=== PATIENT | female | born 1990 | race Caucasian/White ===

== ENCOUNTER 2023-08-24 21:53 | Emergency (ER) | payer OTHER, SELFPAY ==
[2023-08-24 21:56] VITALS: BP 200/124
[2023-08-24] MEDS: NSS 1000 IV (23:51)
[2023-08-24] MEDS: ATIVAN 0.5 MG IV (23:52)
[2023-08-24 23:56] VITALS: BMI 40.5
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
[2023-08-25 00:22] LABS: ALT (SGPT) 42 U/L (0-35); AST (SGOT) 43 U/L (14-36); Acetaminophen < 10 ug/ml (10-30); Albumin 4.6 g/dl (3.5-5.0); Alkaline Phosphatase 68 U/L (38-126); Blood Urea Nitrogen 10 mg/dl (7-17); Calcium 9.3 mg/dl (8.4-10.2); Carbon Dioxide 27 mmol/L (22-30); Estimated Creatinine Clearance 118 ml/min; Glucose 103 mg/dl (70-99); Total Bilirubin 0.9 mg/dl (0.2-1.3); Total Protein 7.8 g/dl (6.3-8.2); eGFR > 60.00
[2023-08-25 00:25] LABS: Alcohol None Detected; HCG, Serum Qualitative Screen Negative
[2023-08-25 00:27] LABS: Amphetamines Positive (Negative); Barbiturates Negative (Negative); Benzodiazepines Negative (Negative); Buprenorphine Negative (Negative); Cocaine Negative (Negative)
[2023-08-25 00:27] LABS: COVID-19 Antigen Negative (Negative)
[2023-08-25 00:28] LABS: Marijuana Negative (Negative); Methadone Negative (Negative); Methamphetamines Positive (Negative); Opiates Negative (Negative); Phencyclidine Negative (Negative); Tricyclic Antidepressants Negative (Negative)
[2023-08-25 00:34] LABS: % Basophils 0.2 % (0-2); % Eosinophils 0.1 % (0-6); % Immature Granulocytes 1.1 % (0-0.5); % Lymphocytes 11.2 % (20.5-51.1); % Monocytes 5.5 % (1.7-9.3); % Neutrophils 81.9 % (42.2-75.2); Absolute Immature Granulocytes 0.1 10^3/uL (0-0.05); Absolute Lymphocytes 1.4 10^3/uL (1.2-3.4); Absolute Monocytes 0.7 10^3/uL (0.1-0.6); Absolute Neutrophils 10.3 10^3/uL (1.4-6.5); Hematocrit 40.4 % (37.0-47.0); Hemoglobin 13.6 g/dL (12.0-16.0); Mean Corp Hgb Conc. 33.7 g/dL (33.0-37.0); Mean Corpuscular Volume 86.1 fL (81.0-99.0); Mean Platelet Volume 9.9 fL (7.4-10.4); Nucleated Red Blood Cells % 0 %; Platelet Count 368 10^3/uL (130-400); Red Blood Cell Count 4.69 10^6/uL (4.20-5.40); Red Cell Dist. Width 12.6 % (11.5-14.5); White Blood Cell Count 12.6 10^3/uL (4.8-10.8)
[2023-08-25 00:44] LABS: Fentanyl, Urine Negative (Negative)
[2023-08-25 00:57] LABS: Chloride 101 mmol/L (98-107); Potassium 3.7 mmol/L (3.5-5.1); Sodium 134 mmol/L (135-145)
[2023-08-25 01:28] VITALS: BP 177/118
[2023-08-25] MEDS: ATIVAN 1 MG IV (01:32)
[2023-08-25 02:55] VITALS: BP 177/120
[2023-08-25] MEDS: ATIVAN 2 MG IV (03:37)
[2023-08-25 06:36] VITALS: BP 176/108
== END 2023-08-25 09:50 ==
LOC: EMR 21:53
PROVIDERS: EMERGENCY PHYSICIAN Emergency Medicine
DX: F41.9 Anxiety disorder, unspecified (principal); T43.655A Adverse effect of methamphetamines, initial encounter; Y92.9 Unspecified place or not applicable; I10 Essential (primary) hypertension
CPT/HCPCS: 99283; 96374; 96376; 80053; 80143; 80306; 80307; 82077; 84703; 85025; 87811; 93005

== ENCOUNTER 2024-02-02 19:35 | Emergency (ER) | payer OTHER, SELFPAY ==
[2024-02-02 19:41] VITALS: BP 138/102
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
[2024-02-02 22:05] VITALS: BP 141/94
== END 2024-02-02 22:05 | disposition home or self-care (01) ==
LOC: EMR 19:35
PROVIDERS: EMERGENCY PHYSICIAN Emergency Medicine; FAMILY PHYSICIAN Family Medicine
DX: F39 Unspecified mood [affective] disorder (principal); F15.10 Other stimulant abuse, uncomplicated; F10.10 Alcohol abuse, uncomplicated; R03.0 Elevated blood-pressure reading, without diagnosis of hypertension; F41.9 Anxiety disorder, unspecified; Z73.3 Stress, not elsewhere classified
CPT/HCPCS: 99283

== ENCOUNTER 2024-08-20 22:26 | Emergency (ER) | payer SELFPAY ==
[2024-08-20 22:31] VITALS: BP 160/106
[2024-08-20 22:35] VITALS: BMI 38.5
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
[2024-08-21] MEDS: ATIVAN 1 MG PO (01:21)
[2024-08-21 02:02] LABS: HCG, Urine Qualitative Screen Negative
[2024-08-21] MEDS: ZOFRAN ODT (ORALLY DISINTEGRATING) 4 MG PO (02:20)
[2024-08-21] MEDS: VIBRAMYCIN 100 MG PO (02:29)
[2024-08-21] MEDS: FLAGYL 2000 MG PO (02:30)
[2024-08-21] MEDS: PLAN B ONE-STEP, NEXT CHOICE 1 TABLET PO (02:37)
== END 2024-08-21 03:02 | disposition home or self-care (01) ==
LOC: EMR 22:26
PROVIDERS: EMERGENCY PHYSICIAN Emergency Medicine
DX: T76.21XA Adult sexual abuse, suspected, initial encounter (principal); Y92.9 Unspecified place or not applicable; F15.10 Other stimulant abuse, uncomplicated
CPT/HCPCS: 99282; 81025